=== PATIENT | male | born 1985 | race Caucasian/White ===

== ENCOUNTER 2017-04-07 10:47 | Emergency (ER) | payer SELFPAY ==
[~2017-04-07] VITALS: Ht 188 cm; Wt 93.2 kg
[~2017-04-07 10:47] MED LIST: CEPHALEXIN500 M1 PO; NO HOME MEDICATIONS; NORCO 325 MG-51 TAB PO; PERCOCET 325 MG1 TA2 PO
[2017-04-07 10:50] VITALS: BP 113/80; PULSE 114; TEMP 98.5
[2017-04-07] MEDS ORDERED: CIPRO HC OTIC S10 ML OT (11:19)
== END 2017-04-07 11:22 | disposition home or self-care (01) ==
LOC: COL.ER 10:47
DX: H60.92 Unspecified otitis externa, left ear (principal); F17.210 Nicotine dependence, cigarettes, uncomplicated; Z98.52 Vasectomy status; Z89.9 Acquired absence of limb, unspecified

== ENCOUNTER 2017-06-12 08:58 | Emergency (ER) | payer SELFPAY ==
[~2017-06-12] VITALS: Ht 188 cm; Wt 97.7 kg
[~2017-06-12 08:58] MED LIST changes: +CIPRO HC OTIC S10 ML OT
[2017-06-12 09:03] VITALS: BP 107/64; TEMP 98.9
[2017-06-12] MEDS ORDERED: NORCO 325 MG-51 TAB PO (10:20)
[2017-06-12 10:55] VITALS: PULSE 80
== END 2017-06-12 10:53 | disposition home or self-care (01) ==
LOC: COL.ER 08:58
DX: S62.336A Displaced fracture of neck of fifth metacarpal bone, right hand, initial encounter for closed fracture (principal); F17.210 Nicotine dependence, cigarettes, uncomplicated; Z98.52 Vasectomy status; Z89.021 Acquired absence of right finger(s); W22.8XXA Striking against or struck by other objects, initial encounter
CPT/HCPCS: Q4021

== ENCOUNTER 2018-09-13 13:05 | Emergency (ER) | payer SELFPAY ==
[~2018-09-13] VITALS: Ht 185.4 cm; Wt 90.9 kg
[2018-09-13 13:16] VITALS: BP 127/78; PULSE 130; TEMP 98.3
[2018-09-13] MEDS ORDERED: AMOXICILLIN 8751 TAB PO (16:47)
[2018-09-13] MEDS ORDERED: NORCO 325 MG-51 TAB PO (16:47)
== END 2018-09-13 17:35 | disposition home or self-care (01) ==
LOC: COL.ER 13:05
DX: S81.812A Laceration without foreign body, left lower leg, initial encounter (principal); S05.11XA Contusion of eyeball and orbital tissues, right eye, initial encounter; F17.210 Nicotine dependence, cigarettes, uncomplicated; W54.0XXA Bitten by dog, initial encounter; Y04.8XXA Assault by other bodily force, initial encounter; Y92.009 Unspecified place in unspecified non-institutional (private) residence as the place of occurrence of the external cause
CPT/HCPCS: J1885